=== PATIENT | female | born 1995 | race African-American/Black ===

== ENCOUNTER 2017-04-05 17:17 | Emergency (ER) | payer MEDICAID ==
[~2017-04-05] VITALS: Ht 177.8 cm; Wt 72.6 kg
[2017-04-05 17:36] VITALS: BP 108/45
== END 2017-04-05 22:52 | disposition left against medical advice (07) ==
LOC: ER 17:22
DX: M25.572 Pain in left ankle and joints of left foot (principal); Z53.21 Procedure and treatment not carried out due to patient leaving prior to being seen by health care provider
CPT/HCPCS: 73610

== ENCOUNTER 2018-04-27 17:26 | Emergency (ER) | payer MEDICAID ==
[~2018-04-27] VITALS: Ht 180.3 cm; Wt 81.6 kg
[2018-04-27 18:00] VITALS: BP 112/46
[2018-04-27] MEDS ORDERED: methylPREDNISolone SOD SUCC 125 MG/2 ML VL IM ONE (19:15)
[2018-04-27] MEDS ORDERED: ONDANSETRON ODT 4 MG TAB PO ONE (19:15)
[2018-04-27] MEDS ORDERED: ACETAMINOPHEN/CODEINE#3 (300/30mg) TAB PO ONE (19:15)
== END 2018-04-27 20:09 | disposition home or self-care (01) ==
LOC: ER 17:30
DX: H69.81 Other specified disorders of Eustachian tube, right ear (principal); J06.9 Acute upper respiratory infection, unspecified
CPT/HCPCS: 96372; 99283; J2930; Q0162